=== PATIENT | female | born 1930 | race Two or more races ===

== ENCOUNTER 2020-10-29 15:28 | Emergency (ER) | payer OTHER ==
[~2020-10-29] VITALS: Ht 152.4 cm; Wt 36.3 kg
[2020-10-29] MEDS ORDERED: CARAFATE1 GM/10 ML PO (15:40)
[2020-10-29] MEDS ORDERED: LANSOPRAZOLE15 MG PO (15:41)
== END 2020-10-29 19:14 | disposition designated cancer center or children's hospital (05) ==
LOC: ER 15:28 → CPU-OBS 15:54 → ER 19:14
DX: I21.4 Non-ST elevation (NSTEMI) myocardial infarction (principal); R10.13 Epigastric pain; E86.0 Dehydration; Z11.52 Encounter for screening for COVID-19
CPT/HCPCS: G0378; G0379; 93005